=== PATIENT | female | born 2000 | race Caucasian/White ===

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

== ENCOUNTER 2025-01-31 21:06 | Emergency (ER) | payer BC ==
[2025-01-31] MEDS ORDERED: methocarbamoL 750 MG TAB ONE (22:21)
[2025-01-31] MEDS ORDERED: KETOROLAC 30 MG/ML INJ ONE (22:21)
[2025-01-31] MEDS ORDERED: ONDANSETRON 4 MG (ODT) TAB ONE (22:22)
[2025-01-31] MEDS ORDERED: TRAMADOL HCL 50 MG TAB ONE (22:22)
[2025-01-31 22:34] LABS: Absolute Basophils 0.1 K/uL (0-0.5); Absolute Eosinophils 0.1 K/uL (0-0.5); Absolute Lymphocytes (CBC) 3.2 K/uL (0.7-4.9); Absolute Monocytes 0.7 K/uL (0.1-1.3); Eosinophils % 1.7 % (0-4.4); Hematocrit 40.2 % (36.0-45.0); Hemoglobin 14.3 g/dL (12.0-15.0); MCHC 35.5 g/dL (32.0-36.0); MCV 84.6 fL (80-100); Monocytes % 8.2 % (3.3-12.3); Neutrophils % 49.1 % (41.7-73.7); Nucleated Red Blood Cells % 0.3 % (0-0); Platelets 222 thou/uL (152-406); RBC Red Blood Cell Count 4.75 M/uL (3.86-4.86); Red Cell Distribution Width 13.1 % (12.1-15.2)
[2025-01-31 22:42] LABS: PT Prothrombin Time 10.9 SECONDS (10-13.0); Protime INR 0.95
[2025-01-31 22:50] LABS: ALT/SGPT 67 U/L (13-56); AST/SGOT 34 U/L (15-37); Albumin 3.9 g/dL (3.4-5.0); Albumin/Globulin Ratio 1.1 (1.1-1.8); Alkaline Phosphatase 77 U/L (45-117); Anion Gap 9.6 mEq/L (5.0-15.0); BUN Blood Urea Nitrogen 12 mg/dL (7-18); Bicarbonate 26 mEq/L (21-32); Bilirubin Direct < 0.2 mg/dL (0-0.2); Bilirubin Indirect, Calculated 0.2 mg/dL (0.2-0.8); Bilirubin Total 0.4 mg/dL (0.2-1.0); Globulin 3.6 g/dL (2.3-3.5); Glomerular Filtration Rate 103 ml/min (=/>90); Glucose Level 97 mg/dL (74-106); NT PRO-BNP 12 pg/mL (<125); Potassium 3.6 mEq/L (3.5-5.1); Protein, Total 7.5 g/dL (6.4-8.2); Sodium Level 137 mEq/L (136-145)
[2025-02-01] MEDS ORDERED: NA CHLORIDE 0.9% 1,000 ML ONE (01:50)
[2025-02-01] MEDS ORDERED: TRAMADOL HCL 50 MG TAB ONE (05:41)
--- NOTE | 2025-02-01 05:41 | RAD REPORT ---
EXAM: 1. CT PELVIS angiography with intravenous contrast. 2. CT angiography BILATERAL LOWER EXTREMITY RUNOFF with intravenous contrast. CLINICAL DATA: 24 years Female swelling of left leg TECHNICAL DATA: Following the administration of intravenous contrast, multiple high-resolution axial images of the pe lvis were performed as well as both lower extremities followed by sagittal and coronal reconstructed images. Coronal and sagittal MIP images were also performed. The CT study is performed according to ALARA (as low as reasonably achievable) or ALARA/IMAGE GENTLY, with automatic adjustment of mA and/or kV according to patient size. Performed on: 02/01/2025 at 2:45 AM COMPARISONS: Lower extremity venous Doppler performed on 01/31/2025 FINDINGS: CTA PELVIS: Free air: There is no evidence of free air. Free fluid: There is no evidence of free fluid. Vasculature: The distal aorta is normal in caliber and contour. The proximal inferior vena cava is gr ossly unremarkable. Lymphadenopathy: No pathologic lymphadenopathy is identified. Bladder: The bladder is well distended and smooth in contour. Reproductive: The uterus is grossly within normal limits. Bones: No acute osseous abnormalities are identified. Soft tissues: No focal soft tissue abnormalities are identified. The appendix is surgically absent. CTA BILATERAL LOWER EXTREMITY RUNOFF: Aorta: The distal aorta is normal in caliber and contour. Common Iliac Arteries: The common iliac arteries are patent and are normal in caliber and contour. External Iliac Arteries: The external iliac arteries are patent and are normal in caliber and contour . Femoral Arteries: The right femoral artery is patent and is normal in caliber and contour. The left f emoral artery is patent and is normal in caliber and contour. Popliteal Arteries: The right popliteal artery is patent and is normal in caliber and contour. The le ft popliteal artery is patent and is normal in caliber and contour. Tibioperoneal Trunk Arteries: There is faint opacification of the tibioperoneal trunk arteries. The R IGHT anterior tibial artery is patent and visualized into the right foot without significant stenosis. The RIGHT peroneal artery is patent and visualized into the right ankle without significant stenosis. The RIGHT posterior tibial artery is patent and visualized into the right foot without significant stenosis. The LEFT anterior tibial artery is patent and visualized into the left foot wit hout significant stenosis. The LEFT peroneal artery is patent and visualized to the level of the left ankle The LEFT posterior tibial artery is patent and visualized into the left foot. Bones: There is no evidence of acute fracture, dislocation or other acute osseous pathology. There are no ly tic or sclerotic bone lesions. No arthritic or degenerative changes are noted. Soft tissues: There is infiltration of the superficial subcutaneous fat surrounding the left ankle and foot consist ent with soft tissue swelling and edema. Cellulitis and/or contusion with edema is not excluded. No definite focal soft tissue mass lesion or focal fluid collection is identified. There is no evidence of subcutaneous emphysema. No definite radiopaque foreign bodies are identified. There are no focal pathologic areas of enhancement. IMPRESSION: CTA PELVIS: 1. Normal CTA of the pelvis. 2. Remote appendectomy. CTA BILATERAL LOWER EXTREMITIES: 1. Normal CTA of the bilateral lower extremities. 2. Soft tissue swelling and edema surrounding the left ankle and foot. Cellulitis and/or contusion with edema is not excluded. No definite focal soft tissue mass lesion or focal fluid collection is identified. There is no evidence of subcutaneous emphysema. No definite radiopaque foreign bodies are identified. 3. No evidence of acute osseous pathology. Electronically signed by: Courtney Lozoya DO 02/01/2025 05:16 AM [facility] Due to temporary technical issues with the PACS/[employer] reporting system, reports are being candelario d by the in-house radiologist without review as a courtesy to ensure prompt reporting the interpreting radiologist is fully responsible for the content of the report. Transcribed Date/Time: 02/01/2025 5:41 AM
--- NOTE | 2025-02-01 05:41 | RAD REPORT ---
EXAM: 1. CT PELVIS angiography with intravenous contrast. 2. CT angiography BILATERAL LOWER EXTREMITY RUNOFF with intravenous contrast. CLINICAL DATA: 24 years Female swelling of left leg TECHNICAL DATA: Following the administration of intravenous contrast, multiple high-resolution axial images of the pe lvis were performed as well as both lower extremities followed by sagittal and coronal reconstructed images. Coronal and sagittal MIP images were also performed. The CT study is performed according to ALARA (as low as reasonably achievable) or ALARA/IMAGE GENTLY, with automatic adjustment of mA and/or kV according to patient size. Performed on: 02/01/2025 at 2:45 AM COMPARISONS: Lower extremity venous Doppler performed on 01/31/2025 FINDINGS: CTA PELVIS: Free air: There is no evidence of free air. Free fluid: There is no evidence of free fluid. Vasculature: The distal aorta is normal in caliber and contour. The proximal inferior vena cava is gr ossly unremarkable. Lymphadenopathy: No pathologic lymphadenopathy is identified. Bladder: The bladder is well distended and smooth in contour. Reproductive: The uterus is grossly within normal limits. Bones: No acute osseous abnormalities are identified. Soft tissues: No focal soft tissue abnormalities are identified. The appendix is surgically absent. CTA BILATERAL LOWER EXTREMITY RUNOFF: Aorta: The distal aorta is normal in caliber and contour. Common Iliac Arteries: The common iliac arteries are patent and are normal in caliber and contour. External Iliac Arteries: The external iliac arteries are patent and are normal in caliber and contour . Femoral Arteries: The right femoral artery is patent and is normal in caliber and contour. The left f emoral artery is patent and is normal in caliber and contour. Popliteal Arteries: The right popliteal artery is patent and is normal in caliber and contour. The le ft popliteal artery is patent and is normal in caliber and contour. Tibioperoneal Trunk Arteries: There is faint opacification of the tibioperoneal trunk arteries. The R IGHT anterior tibial artery is patent and visualized into the right foot without significant stenosis. The RIGHT peroneal artery is patent and visualized into the right ankle without significant stenosis. The RIGHT posterior tibial artery is patent and visualized into the right foot without significant stenosis. The LEFT anterior tibial artery is patent and visualized into the left foot wit hout significant stenosis. The LEFT peroneal artery is patent and visualized to the level of the left ankle The LEFT posterior tibial artery is patent and visualized into the left foot. Bones: There is no evidence of acute fracture, dislocation or other acute osseous pathology. There are no ly tic or sclerotic bone lesions. No arthritic or degenerative changes are noted. Soft tissues: There is infiltration of the superficial subcutaneous fat surrounding the left ankle and foot consist ent with soft tissue swelling and edema. Cellulitis and/or contusion with edema is not excluded. No definite focal soft tissue mass lesion or focal fluid collection is identified. There is no evidence of subcutaneous emphysema. No definite radiopaque foreign bodies are identified. There are no focal pathologic areas of enhancement. IMPRESSION: CTA PELVIS: 1. Normal CTA of the pelvis. 2. Remote appendectomy. CTA BILATERAL LOWER EXTREMITIES: 1. Normal CTA of the bilateral lower extremities. 2. Soft tissue swelling and edema surrounding the left ankle and foot. Cellulitis and/or contusion with edema is not excluded. No definite focal soft tissue mass lesion or focal fluid collection is identified. There is no evidence of subcutaneous emphysema. No definite radiopaque foreign bodies are identified. 3. No evidence of acute osseous pathology. Electronically signed by: Courtney Lozoya DO 02/01/2025 05:16 AM [facility] Due to temporary technical issues with the PACS/[employer] reporting system, reports are being candelario d by the in-house radiologist without review as a courtesy to ensure prompt reporting the interpreting radiologist is fully responsible for the content of the report. Transcribed Date/Time: 02/01/2025 5:40 AM
--- NOTE | 2025-02-01 05:47 | EDPHYS ---
Physician Documentation [facility] Name: Yohana Perez Age: 24 yrs Sex: Female : 2000 Arrival Date: 01/31/2025 Time: 21:06 Bed 19 Private MD: ED Physician Carlos Apodaca HPI: 01/31 21:50 This 24 yrs old Female presents to ER via Unassigned with complaints of Leg sp4 Pain - Left, Leg Swelling - left. 22:00 24-year-old female presents with acute left lower extremity swelling starting this sp4 morning at 6 AM. Patient woke up with a sudden onset of left lower extremity swelling. Patient takes control pills she also states she vapes. No prior similar episodes in the past. 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 - Infectious Disease History:: Denies. - Social history:: Smoking status: Reported history of juuling and/or vaping. - Family history:: not pertinent. ROS: 02/01 23:41 Constitutional: Negative for fever, chills, and weight loss, Positive for left leg sp4 swelling All other systems are negative, Exam: 23:41 Constitutional: This is a well developed, well nourished patient who is awake, alert, sp4 and in no acute distress. Head/Face: Normocephalic, atraumatic. Eyes: Pupils equal round and reactive to light, extra-ocular motions intact. Lids and lashes normal. Conjunctiva and sclera are not injected. Cornea within normal limits. Periorbital areas with no swelling, redness, or edema. ENT: Nares patent. No nasal discharge, no septal abnormalities noted. Tympanic membranes are normal and external auditory canals are clear. Oropharynx with no redness, swelling, or masses, exudates, or evidence of obstruction, uvula midline. Mucous membranes moist. Neck: Trachea midline, no thyromegaly or masses palpated, and no cervical lymphadenopathy. Supple, full range of motion without nuchal rigidity, or vertebral point tenderness. Chest/axilla: Normal chest wall appearance and motion. Nontender with no deformity. No lesions are appreciated. Cardiovascular: Regular rate and rhythm with a normal S1 and S2. No gallops, murmurs, or rubs. Normal PMI, no JVD. No pulse deficits. Respiratory: Lungs have equal breath sounds bilaterally, clear to auscultation and percussion. No rales, rhonchi or wheezes noted. No increased work of breathing, no retractions or nasal flaring. Abdomen/GI: Soft, with normal bowel sounds. No distension or tympany. No guarding or rebound. No evidence of tenderness throughout. Back: No spinal tenderness. No costovertebral tenderness. Skin: Warm, dry with normal turgor. Normal color with no rashes, no lesions, and no evidence of cellulitis. MS/ Extremity: Pulses equal, no cyanosis. Neurovascular intact. Full, normal range of motion. Neuro: Awake and alert, GCS 15, oriented to person, place, time, and situation. Cranial nerves II-XII grossly intact. Motor strength 5/5 in all extremities. Sensory grossly intact. Psych: Awake, alert, with orientation to person, place and time. Behavior, mood, and affect are within normal limits Vital Signs: 01/31 21:42 BP 134 / 88; Pulse 96; Resp 18; Temp 98.5; Pulse Ox 100% on R/A; Weight 79.38 kg; rg5 Height 5 ft. 3 in. ; Pain 7/10; 21:54 BP 134 / 88; Pulse 96; Resp 18; Pulse Ox 100% ; 5 22:55 BP 113 / 59; Pulse 88; Resp 18; Pulse Ox 99% ; [facility] 23:35 BP 119 / 73; Pulse 95; Resp 18; Pulse Ox 99% ; [facility] 02/01 01:13 BP 112 / 71; Pulse 89; Resp 17; Pulse Ox 98% on R/A; [facility] 04:56 BP 108 / 68; Pulse 79; Resp 18; Pulse Ox 100% on R/A; [facility] 01/31 21:42 Body Mass Index 31.00 (79.38 kg, 160.02 cm) [facility] 01/31 21:42 Pain Scale: Adult [facility] [place] Coma Score: 23:41 Eye Response: spontaneous(4). Motor Response: obeys commands(6). Verbal Response: sp4 oriented(5). Total: 15. MDM: 01/31 21:23 Medical Screening Exam initiated dr5 02/01 01:16 ED course: EXAM: Extremity Venous Uni Ltd US Left Lower Extremity Venous Duplex Doppler sp4 HISTORY: swelling left leg COMPARISON: None TECHNIQUE: Grayscale, color Doppler, duplex Doppler, spectral Doppler images and analysis with compression and augmentation of left lower extremity veins. FINDINGS: Left common femoral, greater saphenous, femoral, deep (profunda) femoral, popliteal, posterior tibial veins unremarkable without evidence of clot. IMPRESSION: No sonographic evidence of left lower extremity DVT.. 05:36 ED course: IMPRESSION: CTA PELVIS: 1. Normal CTA of the pelvis. 2. Remote appendectomy. sp4 CTA BILATERAL LOWER EXTREMITIES: 1. Normal CTA of the bilateral lower extremities. 2. Soft tissue swelling and edema surrounding the left ankle and foot. Cellulitis and/or contusion with edema is not excluded. No definite focal soft tissue mass lesion or focal fluid collection is identified. There is no evidence of subcutaneous emphysema. No definite radiopaque foreign bodies are identified. 3. No evidence of acute osseous pathology. Electronically signed by: Courtney Lozoya DO 02/01/2025 05:16 AM. 05:45 ED course: IMPRESSION: CTA PELVIS: 1. Normal CTA of the pelvis. 2. Remote appendectomy. sp4 CTA BILATERAL LOWER EXTREMITIES: 1. Normal CTA of the bilateral lower extremities. 2. Soft tissue swelling and edema surrounding the left ankle and foot. Cellulitis and/or contusion with edema is not excluded. No definite focal soft tissue mass lesion or focal fluid collection is identified. There is no evidence of subcutaneous emphysema. No definite radiopaque foreign bodies are identified. 3. No evidence of acute osseous pathology. Electronically signed by: Courtney Lozoya DO 02/01/2025 05:16 AM. 23:43 Differential diagnosis: dislocation, open fracture, closed fracture, contusion, sp4 abrasion, tendonitis. Data reviewed: vital signs, nurses notes, lab test result(s), radiologic studies, CT scan, ultrasound. Consideration of Admission/Observation Escalation of care including admission/observation considered. 01/31 22:00 Order name: Basic Metabolic Panel; Complete Time: 01:15 sp 01/31 22:00 Order name: CBC with Diff; Complete Time: :15 [facility] 01/31 22:00 Order name: LFT's; Complete Time: 01:15 sp4 01/31 22:00 Order name: NT PRO-BNP; Complete Time: 01:15 sp4 01/31 22:00 Order name: PT-INR; Complete Time: 01:15 sp4 01/31 22:00 Order name: Test, Serum; Complete Time: 01:15 sp4 01/31 21:59 Order name: Extremity Venous Uni Ltd US sp4 02/01 01:32 Order name: CT Pelvis Angio sp4 02/01 01:58 Order name: Lower Ext Angio EDMS 01/31 22:00 Order name: IV Saline Lock; Complete Time: 22:34 sp4 01/31 22:00 Order name: Labs collected and sent; Complete Time: 22:34 sp4 Administered Medications: 01/31 22:33 Drug: traMADol PO 100 mg PO once Route: PO; rg5 02/01 01:51 Follow up: Response: No adverse reaction; Pain is decreased rg5 01/31 22:34 Drug: Ketorolac IVP 30 mg IVP once Route: IVP; Site: right antecubital; rg5 02/01 01:51 Follow up: Response: No adverse reaction; Pain is decreased rg5 01/31 22:34 Drug: Ondansetron PO 4 mg PO once Route: PO; rg5 02/01 01:51 Follow up: Response: No adverse reaction; Pain is decreased rg5 01/31 22:34 Drug: Methocarbamol PO 750 mg PO once Route: PO; rg5 02/01 01:51 Follow up: Response: No adverse reaction; Pain is decreased rg5 01:58 Drug: NS 0.9% IV 1000 ml IV at 1000 ml once; to be given as a bolus over 60 minutes rg5 Route: IV; Rate: 1000 ml; Site: right antecubital; 04:11 Follow up: IV Status: Completed infusion; IV Intake: 1000ml rg5 05:46 Drug: traMADol PO 100 mg PO once Route: PO; rg5 06:09 Follow up: Response: No adverse reaction; Pain is decreased rg5 05:47 Drug: Ondansetron PO 4 mg PO once Route: PO; rg5 06:09 Follow up: Response: No adverse reaction rg5 05:47 Drug: Trimethoprim-Sulfamethoxazole PO (160 mg-800 mg (DS) 1 tablet PO once Route: PO; rg5 06:09 Follow up: Response: No adverse reaction rg5 05:47 Drug: Cephalexin PO 500 mg PO once Route: PO; rg5 06:09 Follow up: Response: No adverse reaction rg5 Disposition Summary: 02/01/25 05:47 Discharge Ordered Notes: Location: Home sp4 Problem: new sp4 Symptoms: have improved sp4 Condition: Stable sp4 Diagnosis - Cellulitis of left lower limb sp4 - Acute left lower extremity swelling, acute cellulitis left lower extremity sp4 Followup: sp4 - With: Private Physician - When: 7 - 10 days - Reason: Recheck today's complaints Discharge Instructions: - Discharge Summary Sheet sp4 - Cellulitis, Adult, [id number] sp4 Forms: - Work release form sp4 - Patient Portal Instructions sp4 Prescriptions: - ketorolac 10 mg Oral tablet - take 1 tablet ORAL route every 8 hours for 5 days PRN pain; 30 tablet; Refills: sp4 0, Product Selection Permitted - tramadol 100 mg Oral tablet - take 1 tablet ORAL route every 8 hours PRN pain; 30 tablet; Refills: 0, Product sp4 Selection Permitted - Cephalexin 500 mg Oral Capsule - take 1 capsule ORAL route every 6 hours for 10 days; 40 capsule; Refills: 0, sp4 Product Selection Permitted - Bactrim DS 800-160 mg Oral Tablet - take 1 tablet ORAL route every 12 hours for 10 days; 20 tablet; Refills: 0, sp4 Product Selection Permitted - ondansetron 8 mg Oral Tablet,disintegrating - take 1 tablet ORAL route every 8 hours PRN nausea; 30 tablet; Refills: 0, sp4 Product Selection Permitted Signatures: Dispatcher [employer] Carlos Haas MD MD sp4 Tod Tobias RN RN rg5 Rafael Engel, COMBATANT SWIMMER-C COMBATANT SWIMMER-Cdr5 Corrections: (The following items were deleted from the chart) 01/31 22:00 22:00 Extremity Venous Uni Ltd+US.RAD.BRZ ordered. EDMS EDMS 22:00 22:00 TEST, SERUM+SC.LAB.BRZ ordered. EDMS EDMS
--- NOTE | 2025-02-01 05:47 | ER ---
Nurse's Notes [facility] Name: Yohana Perez Age: 24 yrs Sex: Female : 2000 Arrival Date: 01/31/2025 Time: 21:06 Bed 19 Private MD: Diagnosis: Cellulitis of left lower limb;Acute left lower extremity swelling, acute cellulitis left lower extremity Presentation: 01/31 21:42 Chief complaint: Patient states: left leg is swelling since 6am this morning \T\ pain rg5 starts from my left side of the hip radiating down to my foot. 21:42 Coronavirus screen: Client denies travel out of the [place] in the last 14 days. Ebola rg5 Screen: Patient negative for fever greater than or equal to 101.5 degrees Fahrenheit, and additional compatible Ebola Virus Disease symptoms Patient denies exposure to infectious person. Patient denies travel to an Ebola-affected area in the 21 days before illness onset. Initial Sepsis Screen: Does the patient meet any 2 criteria? No. Patient's initial sepsis screen is negative. Does the patient have a suspected source of infection? No. Patient's initial sepsis screen is negative. Risk Assessment: Do you want to hurt yourself or someone else? Patient reports no desire to harm self or others. Onset of symptoms was January 31, 2025. 21:42 Method Of Arrival: Wheelchair rg5 21:42 Acuity: MARIYA 4 rg5 Triage Assessment: 21:42 General: Appears in no apparent distress. comfortable, Behavior is calm, cooperative, rg5 appropriate for age. Pain: Complains of pain in left foot and left leg Quality of pain is described as aching, Pain began 4 hours ago. EENT: No deficits noted. Neuro: Level of Consciousness is awake, alert, obeys commands, Oriented to person, place, time, situation. Cardiovascular: Patient's skin is warm and dry. Respiratory: Airway is patent Trachea midline Respiratory effort is even, unlabored, Respiratory pattern is regular, symmetrical. GI: Abdomen is round non-distended. : No signs and/or symptoms were reported regarding the genitourinary system. Derm: Skin is intact, Skin is dry, Skin is normal, Skin temperature is warm. Musculoskeletal: Circulation, motion, and sensation intact. Range of motion: intact in all extremities. 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 - Infectious Disease History:: Denies. - Social history:: Smoking status: Reported history of juuling and/or vaping. - Family history:: not pertinent. Screenin:42 [facility] ED Fall Risk Assessment (Adult) History of falling in the last 3 months, rg5 including since admission No falls in past 3 months (0 pts) Confusion or Disorientation No (0 pts) Intoxicated or Sedated No (0 pts) Impaired Gait No (0 pts) Mobility Assist Device Used No (0 pt) Altered Elimination No (0 pt) Score/Fall Risk Level 0 - 2 = Low Risk Oriented to surroundings, Maintained a safe environment, Provided non-skid footwear. 21:42 Abuse screen: Denies threats or abuse. Nutritional screening: No deficits noted. rg5 Tuberculosis screening: No symptoms or risk factors identified. Assessment: 21:45 General: Appears uncomfortable, Behavior is calm, cooperative, appropriate for age. rg5 21:45 Pain: Complains of pain in left foot and left leg Quality of pain is described as rg5 aching. Neuro: Level of Consciousness is awake, alert, obeys commands, Oriented to person, place, time. Cardiovascular: Denies chest pain, Patient's skin is warm and dry. Respiratory: Airway is patent Trachea midline Respiratory effort is even, unlabored, Respiratory pattern is regular, symmetrical. GI: Abdomen is round non-distended. : No signs and/or symptoms were reported regarding the genitourinary system. EENT: No deficits noted. Derm: Skin is intact, Skin is dry, Skin is normal. Musculoskeletal: Circulation, motion, and sensation intact. Range of motion: intact in all extremities. 22:40 Reassessment: No changes from previously documented assessment. Patient and/or family rg5 updated on plan of care and expected duration. Pain level reassessed. Patient is alert, oriented x 3, equal unlabored respirations, skin warm/dry/pink. 23:45 Reassessment: No changes from previously documented assessment. Patient and/or family rg5 updated on plan of care and expected duration. Pain level reassessed. Patient is alert, oriented x 3, equal unlabored respirations, skin warm/dry/pink. 02/01 00:40 Reassessment: No changes from previously documented assessment. Patient and/or family rg5 updated on plan of care and expected duration. Pain level reassessed. Patient is alert, oriented x 3, equal unlabored respirations, skin warm/dry/pink. 01:42 Reassessment: No changes from previously documented assessment. Patient and/or family rg5 updated on plan of care and expected duration. Pain level reassessed. Patient is alert, oriented x 3, equal unlabored respirations, skin warm/dry/pink. 02:41 Reassessment: No changes from previously documented assessment. Patient and/or family rg5 updated on plan of care and expected duration. Pain level reassessed. Patient is alert, oriented x 3, equal unlabored respirations, skin warm/dry/pink. 03:35 Reassessment: No changes from previously documented assessment. Patient and/or family rg5 updated on plan of care and expected duration. Pain level reassessed. Patient is alert, oriented x 3, equal unlabored respirations, skin warm/dry/pink. 04:50 Reassessment: No changes from previously documented assessment. Patient and/or family rg5 updated on plan of care and expected duration. Pain level reassessed. Patient is alert, oriented x 3, equal unlabored respirations, skin warm/dry/pink. Vital Signs: 01/31 21:42 BP 134 / 88; Pulse 96; Resp 18; Temp 98.5; Pulse Ox 100% on R/A; Weight 79.38 kg; 5 Height 5 ft. 3 in. ; Pain 7/10; 21:54 BP 134 / 88; Pulse 96; Resp 18; Pulse Ox 100% ; 5 22:55 BP 113 / 59; Pulse 88; Resp 18; Pulse Ox 99% ; [facility] 23:35 BP 119 / 73; Pulse 95; Resp 18; Pulse Ox 99% ; [facility] 02/01 01:13 BP 112 / 71; Pulse 89; Resp 17; Pulse Ox 98% on R/A; [facility] 04:56 BP 108 / 68; Pulse 79; Resp 18; Pulse Ox 100% on R/A; [facility] 01/31 21:42 Body Mass Index 31.00 (79.38 kg, 160.02 cm) [facility] 01/31 21:42 Pain Scale: Adult rg5 Lorenzo Coma Score: 23:41 Eye Response: spontaneous(4). Motor Response: obeys commands(6). Verbal Response: sp4 oriented(5). Total: 15. ED Course: 01/31 21:12 Patient arrived in ED. im 21:23 [facility] 21:23 Carlos Apodaca MD is Attending Physician. dr5 21:42 Arm band placed on. rg5 21:42 Patient has correct armband on for positive identification. Door closed. Noise rg5 minimized. 21:42 No provider procedures requiring assistance completed. rg5 21:45 Inserted saline lock: 22 gauge in right antecubital area, using aseptic technique. rg5 Blood collected. Flushed with 10 mL NS. 21:46 Tod Tobias, RN is Primary Nurse. rg5 21:51 Triage completed. rg5 23:11 Extremity Venous Uni Ltd US In Process Unspecified. EDMS 02/01 02:34 CT Pelvis Angio In Process Unspecified. EDMS 02:34 Lower Ext Angio In Process Unspecified. EDMS 06:10 Provided Education on: post er care done. rg5 06:10 IV discontinued, bleeding controlled, No redness/swelling at site. Pressure dressing rg5 applied. Administered Medications: 01/31 22:33 Drug: traMADol PO 100 mg PO once Route: PO; rg5 02/01 01:51 Follow up: Response: No adverse reaction; Pain is decreased rg5 01/31 22:34 Drug: Ketorolac IVP 30 mg IVP once Route: IVP; Site: right antecubital; rg5 02/01 01:51 Follow up: Response: No adverse reaction; Pain is decreased rg5 01/31 22:34 Drug: Ondansetron PO 4 mg PO once Route: PO; rg5 02/01 01:51 Follow up: Response: No adverse reaction; Pain is decreased rg5 01/31 22:34 Drug: Methocarbamol PO 750 mg PO once Route: PO; rg5 02/01 01:51 Follow up: Response: No adverse reaction; Pain is decreased rg5 01:58 Drug: NS 0.9% IV 1000 ml IV at 1000 ml once; to be given as a bolus over 60 minutes rg5 Route: IV; Rate: 1000 ml; Site: right antecubital; 04:11 Follow up: IV Status: Completed infusion; IV Intake: 1000ml rg5 05:46 Drug: traMADol PO 100 mg PO once Route: PO; rg5 06:09 Follow up: Response: No adverse reaction; Pain is decreased rg5 05:47 Drug: Ondansetron PO 4 mg PO once Route: PO; rg5 06:09 Follow up: Response: No adverse reaction rg5 05:47 Drug: Trimethoprim-Sulfamethoxazole PO (160 mg-800 mg (DS) 1 tablet PO once Route: PO; rg5 06:09 Follow up: Response: No adverse reaction rg5 05:47 Drug: Cephalexin PO 500 mg PO once Route: PO; rg5 06:09 Follow up: Response: No adverse reaction rg5 Medication: 01/31 21:45 VIS not applicable for this client. rg5 Intake: 02/01 04:11 IV: 1000ml; Total: 1000ml. rg5 Outcome: 05:47 Discharge ordered by . sp4 06:10 Discharged to home via wheelchair, rg5 06:10 Condition: stable 06:10 Discharge instructions given to patient, Instructed on discharge instructions, Demonstrated understanding of instructions, follow-up care, Prescriptions given X 4, 06:11 Patient left the ED. rg5 Signatures: Dispatcher [employer] Carlos Haas MD MD sp4 Susy Germain Rommel RN RN rg5 Rafael Engel, BOWLING PIN SETTERS INSTALLER-C BOWLING PIN SETTERS INSTALLER-Cdr5
[2025-02-01] MEDS ORDERED: SMZ./TMP. 800/160 MG TABLET ONE (05:52)
[2025-02-01] MEDS ORDERED: ONDANSETRON 4 MG (ODT) TAB ONE (05:52)
[2025-02-01] MEDS ORDERED: CEPHALEXIN 250 MG CAP ONE (05:52)
[2025-02-01 06:24] VITALS: TEMP 98.5
[2025-02-01 06:39] VITALS: BP 108/68; O2SAT 100
--- NOTE | 2025-02-01 07:41 | RAD REPORT ---
EXAMINATION: US LEFT LOWER EXTREMITY VENOUS DOPPLER CLINICAL INDICATION: swelling left leg TECHNIQUE: Complete bilateral duplex sonography of the LEFT lower extremity veins was performed. The examination included compression for vein patency, color Doppler imaging and flow augmentation in response to distal compression of the distal external iliac, common femoral, femoral, popliteal, tibi al, and great and small saphenous veins. COMPARISON: No prior exam. FINDINGS: Duplex sonography testing of the veins of the LEFT lower extremity was performed. Color flow imaging shows all veins to be compressible with [id number] color filling. Pulsatile and phasic flow is present within all lower extremity deep and superficial veins examined. IMPRESSION: There is no deep vein or superficial vein thrombosis.
== END 2025-02-01 06:11 | disposition home or self-care (01) ==
LOC: ER 21:06
DX: L03.116 Cellulitis of left lower limb (principal)
CPT/HCPCS: 85025; 80048; 36415; 84703; 85610; 80076; 83880; 73706; 72191; 93971; Q9967; Q0162 ×2; J7030

== ENCOUNTER 2025-02-07 17:45 | Inpatient (IN) | payer BC ==
[2025-02-07] MEDS ORDERED: ONDANSETRON 4 MG/2 ML VIAL ONE (19:31)
[2025-02-07] MEDS ORDERED: MORPHINE 4 MG/ML SYR ONE (19:32)
[2025-02-07] MEDS ORDERED: NA CHLORIDE 0.9% 1,000 ML ONE (19:32)
[2025-02-07 19:42] LABS: Absolute Basophils 0.1 K/uL (0-0.5); Absolute Eosinophils 0.1 K/uL (0-0.5); Absolute Lymphocytes (CBC) 2.1 K/uL (0.7-4.9); Absolute Monocytes 0.7 K/uL (0.1-1.3); Absolute Neutrophil 5.3 K/uL (1.8-8.0); Eosinophils % 1.3 % (0-4.4); Hematocrit 40.1 % (36.0-45.0); Hemoglobin 14.1 g/dL (12.0-15.0); Lymphocytes % 25.5 % (15.3-44.8); MCH 29.4 pg (27.0-35.0); MCHC 35.1 g/dL (32.0-36.0); MCV 83.7 fL (80-100); MPV 8.7 fL (7.6-11.3); Monocytes % 8.1 % (3.3-12.3); Neutrophils % 64.1 % (41.7-73.7); Nucleated RBC Absolute Count 0.1 (0-0); Nucleated Red Blood Cells % 0.7 % (0-0); Platelets 229 thou/uL (152-406); Red Cell Distribution Width 12.8 % (12.1-15.2)
[2025-02-07 19:50] LABS: PT Prothrombin Time 11.4 SECONDS (10-13.0); PTT, Activated Partial Thromb 30.9 SECONDS (27.2-37.4)
[2025-02-07 19:58] LABS: Albumin/Globulin Ratio 1.1 (1.1-1.8); Bilirubin Total 0.5 mg/dL (0.2-1.0); Globulin 3.6 g/dL (2.3-3.5); Protein, Total 7.6 g/dL (6.4-8.2)
--- NOTE | 2025-02-07 20:22 | EDPHYS ---
Physician Documentation [facility] Name: Yohana Perez Age: 24 yrs Sex: Female : 2000 Arrival Date: 02/07/2025 Time: 17:45 Bed 23 Private MD: ED Physician Sumanth Marshall HPI: 02/07 18:10 This 24 yrs old Female presents to ER via Ambulatory with complaints of Leg Swelling. cp Historical: - Allergies: 17:52 No Known Allergies; hb - PSHx: 17:52 Appendectomy; hb - Immunization history:: Adult Immunizations up to date. - Infectious Disease History:: Denies. - Social history:: Smoking status: Patient denies any tobacco usage or history of. ROS: 18:15 Constitutional: Negative for body aches, chills, fever, poor PO intake, cp 18:15 Eyes: Negative for injury, pain, redness, and discharge, cp 18:15 ENT: Negative for drainage from ear(s), ear pain, sore throat, difficulty swallowing, difficulty handling secretions, 18:15 Cardiovascular: Positive for edema of left lower leg, Negative for chest pain, palpitations, 18:15 Respiratory: Negative for cough, shortness of breath, wheezing, 18:15 Abdomen/GI: Negative for abdominal pain, nausea, vomiting, and diarrhea, 18:15 Back: Negative for injury or acute deformity, decreased range of motion, 18:15 MS/extremity: Positive for pain, swelling, tenderness, of the left leg, Negative for paresthesias, 18:15 Neuro: Negative for altered mental status, headache, syncope, 18:15 All other systems are negative, Exam: 18:20 Constitutional: The patient appears in no acute distress, alert, awake, cp non-diaphoretic, non-toxic, well developed, well nourished, uncomfortable, 18:20 Head/Face: Normocephalic, atraumatic. cp 18:20 Eyes: Periorbital structures: appear normal, Conjunctiva: normal, no exudate, no injection, Sclera: no appreciated abnormality, Lids and lashes: appear normal, bilaterally, 18:20 ENT: External ear(s): are unremarkable, Nose: is normal, Mouth: Lips: moist, Oral mucosa: moist, Posterior pharynx: Airway: no evidence of obstruction, patent, 18:20 Neck: ROM/movement: is normal, is supple, without pain, no range of motions limitations, 18:20 Chest/axilla: Inspection: normal, 18:20 Cardiovascular: Rate: normal, Rhythm: regular, Edema: ankle edema, that is moderate, left ankle and left lower leg, JVD: is not appreciated, 18:20 Respiratory: the patient does not display signs of respiratory distress, Respirations: normal, no use of accessory muscles, no retractions, labored breathing, is not present, Breath sounds: are clear throughout, no decreased breath sounds, no stridor, no wheezing, 18:20 Abdomen/GI: Inspection: abdomen appears normal, Palpation: abdomen is soft and non-tender, in all quadrants, 18:20 Back: pain, is absent, ROM is normal, 18:20 Musculoskeletal/extremity: Extremities: noted in the left leg: pain, tenderness, There is no evidence of decreased ROM, ecchymosis, erythema, ROM: limited passive range of motion due to pain, in the left hip and left knee and left ankle, Pulses: noted to be 2+ in the left dorsalis pedis artery, the left foot and left leg Sensation intact. Joints: no signs of septic joint of left hip and left knee and left ankle, 19:53 ECG was reviewed by the Attending Physician. Vital Signs: 17:51 BP 143 / 89; Pulse 99; Resp 16; Temp 97.9; Pulse Ox 100% on R/A; Pain 8/10; hb 20:58 BP 112 / 57; Pulse 90; Resp 16; Pulse Ox 100% on R/A; jb4 17:51 Pain Scale: Adult hb MDM: 20:07 Medical Screening Exam initiated aaliyah 20:20 Data reviewed: vital signs, nurses notes, old medical records, ED notes, labs, radiology studies from previous visit for similar complaints lab test result(s), EKG. 20:20 I considered the following discharge prescriptions or medication management in the emergency department Medications were administered in the Emergency Department. See MAR. Independent interpretation of the following test(s) in the Emergency Department EKG: See my EKG interpretation above. 02/07 18:07 Order name: Blood Culture Adult (2) 02/07 18:07 Order name: CBC with Diff; Complete Time: 19:45 04/20 19:45 Interpretation: Normal except. cp 02/07 18:07 Order name: CMP; Complete Time: 20:17 cp 02/07 20:17 Interpretation: Normal except: GFR 83; GLOB 3.6. cp 02/07 18:07 Order name: Lactate w/ 2H reflex if indic.; Complete Time: 20:17 cp 02/07 18:07 Order name: Protime (+inr); Complete Time: 20:17 cp 02/07 18:07 Order name: Ptt, Activated; Complete Time: 20:17 cp 02/07 18:07 Order name: Urinalysis w/ reflexes cp 02/07 22:40 Order name: CBC with Automated Diff EDMS 02/07 22:40 Order name: CBC with Automated Diff EDMS 02/07 22:40 Order name: Comprehensive Metabolic Panel EDMS 02/07 22:40 Order name: Comprehensive Metabolic Panel EDMS 02/08 09:10 Order name: C-Reactive Protein EDMS 02/07 20:45 Order name: US Extremity Venous Unilateral Ltd; Complete Time: 22:43 cp 02/07 20:45 Order name: Lower Extremity Artery Uni Ltd ; Complete Time: 22:43 cp 02/07 22:43 Interpretation: Report reviewed. cp 02/07 22:40 Order name: CONS Physician Consult EDMS 02/07 18:07 Order name: Cardiac monitoring; Complete Time: 19:30 cp 02/07 18:07 Order name: EKG - Nurse/Tech; Complete Time: 19:50 cp 02/07 18:07 Order name: IV Saline Lock - Large Bore; Complete Time: 19:30 cp 02/07 18:07 Order name: Labs collected and sent; Complete Time: 19:30 cp 02/07 18:07 Order name: O2 Per Protocol; Complete Time: 18:27 cp 02/07 18:07 Order name: O2 Sat Monitoring; Complete Time: 18:27 cp 02/07 18:07 Order name: Vital Signs; Complete Time: 18:27 cp EC:53 Rate is 81 beats/min. Rhythm is regular. ND interval is normal. QRS interval is normal. cp QT interval is normal. T waves are Inverted in lead aVR. Interpreted by me. Reviewed by me. Administered Medications: 19:42 Drug: NS 0.9% IV 1000 ml IV at 1000 ml once; to be given as a bolus over 60 minutes jb4 Route: IV; Rate: 1000 ml; Site: right antecubital; 21:07 Follow up: Response: No adverse reaction; IV Status: Completed infusion; IV Intake: jb4 1000ml 19:42 Drug: morphine IVP or IV 4 mg IVP once over 4 mins Route: IVP; Infused Over: 4 mins; jb4 Site: right antecubital; 21:08 Follow up: Response: No adverse reaction; Marked relief of symptoms jb4 19:42 Drug: Ondansetron IVP 4 mg IVP once; over 2 minutes Route: IVP; Site: right antecubital;jb4 21:08 Follow up: Response: No adverse reaction; Marked relief of symptoms jb4 20:58 Drug: Piperacillin-Tazobactam IVPB 3.375 grams IVPB once over 60 mins; (mix in NS 100 jb4 mL) Route: IVPB; Infused Over: 60 mins; Site: right antecubital; 21:58 Follow up: Response: No adverse reaction; IV Status: Completed infusion; IV Intake: jb4 100ml 21:58 Follow up: IV Status: Completed infusion; IV Intake: 100ml vc1 22:30 Drug: vancoMYCIN IVPB 1 grams IVPB once over 2 hrs Route: IVPB; Infused Over: 2 hrs; jb4 Site: right antecubital; 02/08 00:30 Follow up: IV Status: Completed infusion vc1 Disposition: 02/09 14:47 Co-signature as Attending Physician, Sumanth Marshall MD I agree with the assessment and aaliyah plan of care. Disposition Summary: 02/07/25 20:21 Hospitalization Ordered Notes: Hospitalization Status: Inpatient Admission cp Provider: Kai Scott cp Condition: Stable cp Problem: new cp Symptoms: have improved cp Bed/Room Type: Standard cp Location: Telemetry/MedSurg (Inpatient)(02/08/25 13:46) em1 Room Assignment: 409(02/08/25 13:46) em1 Diagnosis - Cellulitis of left lower limb cp Forms: - Medication Reconciliation Form cp - SBAR form cp - Leadership Thank You Letter cp Signatures: Dispatcher [employer] Sumanth Escamilla MD MD cha Martinez, Eric em1 Sumanth Mckeon PA PA cp Nicole Dias RN RN Joseph Kay RN RN jb4 Madison, Letty vk Calcote, Ernestina RN vc1 Corrections: (The following items were deleted from the chart) 02/07 18:08 18:08 BLOOD CULTURE*+BA.LAB.BRZ ordered. EDMS EDMS 18:08 18:08 CBC+H.LAB.BRZ ordered. EDMS EDMS 18:08 18:08 COMPREHENSIVE METABOLIC PANEL+C.LAB.BRZ ordered. EDMS EDMS 18:08 18:08 LACTATE+C.LAB.BRZ ordered. EDMS EDMS 18:08 18:08 PROTIME (+INR)+COAG.LAB.BRZ ordered. EDMS EDMS 18:08 18:08 PTT, ACTIVATED+COAG.LAB.BRZ ordered. EDMS EDMS 18:08 18:08 Urinalysis+U.LAB.BRZ ordered. EDMS EDMS 20:21 18:07 Accucheck ordered. cp jb4 20:46 20:46 Lower Extremity Artery Uni Ltd+US.RAD.BRZ ordered. EDMS EDMS 21:12 20:21 Telemetry/MedSurg (Inpatient) cp vk 21:12 20:21 cp vk 02/08 13:46 02/07 21:12 [facility] ER HOLD vk em1 02/08 13:46 02/07 21:12 ERHOLD- vk em1
--- NOTE | 2025-02-07 20:22 | ER ---
Nurse's Notes [facility] Name: Yohana Perez Age: 24 yrs Sex: Female : 2000 Arrival Date: 02/07/2025 Time: 17:45 Bed 23 Private MD: Diagnosis: Cellulitis of left lower limb Presentation: 02/07 17:51 Chief complaint: Seen in ED for left leg pain and swelling, feels like it is getting hb worse. Coronavirus screen: At this time, the client does not indicate any symptoms associated with coronavirus-19. Ebola Screen: No symptoms or risks identified at this time. Initial Sepsis Screen: Does the patient meet any 2 criteria? No. Patient's initial sepsis screen is negative. Does the patient have a suspected source of infection? No. Patient's initial sepsis screen is negative. Risk Assessment: Do you want to hurt yourself or someone else? Patient reports no desire to harm self or others. Onset of symptoms was January 31, 2025. 17:51 Method Of Arrival: Ambulatory hb 17:51 Acuity: MARIYA 3 hb Historical: - Allergies: 17:52 No Known Allergies; hb - PSHx: 17:52 Appendectomy; hb - Immunization history:: Adult Immunizations up to date. - Infectious Disease History:: Denies. - Social history:: Smoking status: Patient denies any tobacco usage or history of. Assessment: 20:58 Reassessment: Patient appears in no apparent distress at this time. Patient and/or jb4 family updated on plan of care and expected duration. Pain level reassessed. Patient is alert, oriented x 3, equal unlabored respirations, skin warm/dry/pink. Vital Signs: 17:51 BP 143 / 89; Pulse 99; Resp 16; Temp 97.9; Pulse Ox 100% on R/A; Pain 8/10; hb 20:58 BP 112 / 57; Pulse 90; Resp 16; Pulse Ox 100% on R/A; jb4 17:51 Pain Scale: Adult hb ED Course: 17:48 Patient arrived in ED. al6 17:50 Sumanth Mckeon PA is PHCP. cp 17:50 Sumanth Marshall MD is Attending Physician. cp 17:52 Triage completed. hb 17:54 Arm band placed on. hb 20:21 Kai Scott MD is Hospitalizing Provider. cp 21:22 Joseph Toure, RN is Primary Nurse. jb4 22:24 US Extremity Venous Unilateral Ltd In Process Unspecified. EDMS 22:24 Lower Extremity Artery Uni Ltd US In Process Unspecified. EDMS 02/08 07:07 Primary Nurse role handed off by Joseph Toure, RN bp 07:07 Oren Brown, RN is Primary Nurse. bp Administered Medications: 02/07 19:42 Drug: NS 0.9% IV 1000 ml IV at 1000 ml once; to be given as a bolus over 60 minutes jb4 Route: IV; Rate: 1000 ml; Site: right antecubital; 21:07 Follow up: Response: No adverse reaction; IV Status: Completed infusion; IV Intake: jb4 1000ml 19:42 Drug: morphine IVP or IV 4 mg IVP once over 4 mins Route: IVP; Infused Over: 4 mins; jb4 Site: right antecubital; 21:08 Follow up: Response: No adverse reaction; Marked relief of symptoms jb4 19:42 Drug: Ondansetron IVP 4 mg IVP once; over 2 minutes Route: IVP; Site: right antecubital;jb4 21:08 Follow up: Response: No adverse reaction; Marked relief of symptoms jb4 20:58 Drug: Piperacillin-Tazobactam IVPB 3.375 grams IVPB once over 60 mins; (mix in NS 100 jb4 mL) Route: IVPB; Infused Over: 60 mins; Site: right antecubital; 21:58 Follow up: Response: No adverse reaction; IV Status: Completed infusion; IV Intake: jb4 100ml 21:58 Follow up: IV Status: Completed infusion; IV Intake: 100ml vc1 22:30 Drug: vancoMYCIN IVPB 1 grams IVPB once over 2 hrs Route: IVPB; Infused Over: 2 hrs; jb4 Site: right antecubital; 02/08 00:30 Follow up: IV Status: Completed infusion vc1 Medication: 02/07 20:58 VIS not applicable for this client. jb4 Intake: 21:07 IV: 1000ml; Total: 1000ml. jb4 21:58 IV: 100ml; Total: 1100ml. jb4 21:58 IV: 100ml; Total: 1200ml. vc1 Outcome: 20:21 Decision to Hospitalize by Provider. cp 02/08 15:09 Patient left the ED. bp Signatures: Dispatcher [employer] EDMS Sumanth Mckeon PA PA cp Baxter, Heather, RN RN Joseph Kay RN RN jb4 Oren Brown RN RN bp Calcote, Vanessa, RN RN vc1 Christiane Carroll
[2025-02-07] MEDS ORDERED: VANCOMYCIN 1 GM/VIAL ONE (20:25)
[2025-02-07] MEDS ORDERED: NA CHLORIDE 0.9% 250 ML ONE (20:25)
[2025-02-07] MEDS ORDERED: PIPERACIL/TAZO 3.375 GM VIAL IV ONE (20:25)
[2025-02-07] MEDS ORDERED: NA CHLORIDE 0.9% 100 ML ONE (20:25)
--- NOTE | 2025-02-07 22:34 | P.HP ---
Certification for Inpatient Patient admitted to: Inpatient With expected LOS: >2 Midnights Practitioner: I am a practitioner with admitting privileges, knowledge of patient current condition, hospital course, and medical plan of care. Services: Services provided to patient in accordance with Admission requirements found in Title 42 Section 412.3 of the Code of Federal Regulations Patient History Date of Service: 02/07/25 Reason for admission: Left leg Pain History of Present Illness: 24 yrs old Female with no significant past medical history brought to ER with left lower extremity pain and swelling which has been going on for the last 8 days. Denies any chest pain or shortness of breath. Patient denies any trauma. No fever or chills. Patient started having pain and swelling on the left lower extremity. She was assessed in the ER previously with CTA which was negative patient continues to have pain and swelling in the left lower extremity and was admitted for further management Allergies No Known Allergies Allergy (Verified 11/12/18 19:56) Home Medications: NK [No Home Meds] 11/12/18 - Past Medical/Surgical History Diabetic: No Past Medical History: Reviewed- Non-Contributory -: none Past Surgical History: Reviewed- Non-Contributory - Family History Family History: Reviewed- Non-Contributory - Social History Smoking Status: Never smoker Alcohol use: Yes CD- Drugs: No Caffeine use: Yes Review of Systems 10-point ROS is otherwise unremarkable Other: constitutional: Reports: generalized weakness. Skin: Denies: rash. Allergy/Immun: Denies: rhinorrhea, sneezing. Eyes: Denies: visual loss/blurred. ENT: Denies: earache, nasal congestion. Respiratory: Denies: non productive cough. Cardiovascular: Denies: chest pain, palpitations. GI: Denies: diarrhea, nausea. : Denies: dysuria. Musculoskeletal: Reports: arthritis. Denies: extremity pain. Heme: Denies: bleeding. Endocrine: Denies: polydipsia. Neuro: Reports: dizziness, gait problem, lightheaded, spinning sensation. Psych: Reports: anxiety. All systems rev & neg: except as noted Physical Examination - Vital Signs Temperature: 97.4 F Blood Pressure: 118/68 Pulse: 76 Respirations: 18 Pulse Ox (%): 94 - Physical Exam General: Alert, In no apparent distress, Oriented x3 HEENT: Atraumatic, Normocephalic Neck: Supple Respiratory: Clear to auscultation bilaterally, Normal air movement Cardiovascular: Normal pulses, Regular rate/rhythm, Edema Capillary refill: <2 Seconds Gastrointestinal: Soft and benign, W/out hepatosplenomegaly Musculoskeletal: No clubbing, Swelling Integumentary: No rashes Neurological: Normal gait, Normal speech, Normal strength at 5/5 x4 extr Lymphatics: No axilla or inguinal lymphadenopathy - Studies Laboratory Data (last 24 hrs) 02/07/25 02/07/25 02/07/25 19:25 19:25 19:25 WBC 8.20 Hgb 14.1 Hct 40.1 Plt Count 229 PT 11.4 INR 1.00 APTT 30.9 Sodium 136 Potassium 4.0 BUN 12 Creatinine 0.98 Glucose 93 Total Bilirubin 0.5 AST 28 ALT 73 H Alkaline Phosphatase 67 Assessment and Plan - Plan Left lower extremity cellulitis/swelling Pain control Will get a Doppler arterial and also Doppler of the venous system to rule out DVT Awaiting further recommendations Will get a surgical consult GI/DVT prophylaxis Discharge Plan: Home Plan to discharge in: 48 Hours - Advance Directives Does patient have a Living Will: No Does patient have a Durable POA for Healthcare: No - Code Status/Comfort Care Code Status: Full Code Time Spent Managing Pts Care (In Minutes): 48
[2025-02-07] MEDS ORDERED: ONDANSETRON 4 MG/2 ML VIAL IV PRN (22:35)
[2025-02-07] MEDS ORDERED: ACETAMINOPHEN 325 MG TABLET PO PRN (22:35)
--- NOTE | 2025-02-07 22:36 | RAD REPORT ---
EXAM:Extremity Venous Uni Ltd HISTORY: Left leg pain TECHNIQUE: Sonographic evaluation left lower extremity performed.Grayscale, color and spectral analys is performed on all vessels COMPARISON: None. FINDINGS: Left common femoral, superficial femoral, greater saphenous, popliteal and posterior tibial veins are compressible and demonstrate augmentation. Doppler demonstrates good flow. IMPRESSION: No evidence of deep venous thrombosis involving the left lower extremity.
--- NOTE | 2025-02-07 22:38 | RAD REPORT ---
EXAM:Lower Extremity Artery Uni Ltd HISTORY: Left leg pain TECHNIQUE: Sonographic evaluation left lower extremity arteries performed.Grayscale, color and spectr al analysis performed on all vessels COMPARISON: None. FINDINGS: Left common femoral arterial waveform triphasic Left superficial femoral arterial waveform triphasic Left popliteal arterial waveform triphasic Left posterior tibial waveform is biphasic Left dorsalis pedis arterial waveform biphasic. No high-grade stenosis/occlusion IMPRESSION: Mild distal disease involving arteries of the left lower extremity
[2025-02-07 23:01] VITALS: BMI 30.9
[2025-02-07] MEDS ORDERED: KETOROLAC 10 MG TAB PO PRN (23:59)
[2025-02-08 07:56] LABS: Absolute Basophils 0.1 K/uL (0-0.5); Absolute Eosinophils 0.1 K/uL (0-0.5); Absolute Lymphocytes (CBC) 2.4 K/uL (0.7-4.9); Absolute Monocytes 0.7 K/uL (0.1-1.3); Absolute Neutrophil 4.6 K/uL (1.8-8.0); Basophils % 0.8 % (0-1.3); Eosinophils % 1.7 % (0-4.4); Hematocrit 38.2 % (36.0-45.0); Hemoglobin 13.2 g/dL (12.0-15.0); Lymphocytes % 30.3 % (15.3-44.8); MCH 29.1 pg (27.0-35.0); MCHC 34.5 g/dL (32.0-36.0); MCV 84.3 fL (80-100); Monocytes % 8.6 % (3.3-12.3); Neutrophils % 58.6 % (41.7-73.7); Platelets 214 thou/uL (152-406); RBC Red Blood Cell Count 4.53 M/uL (3.86-4.86); Red Cell Distribution Width 12.5 % (12.1-15.2)
[2025-02-08] MEDS: ENOXAPARIN 40 MG/0.4 ML SQ SCH (08:29)
[2025-02-08] MEDS: VANCOMYCIN 1 GM in NA CHLORIDE 0.9% 250 ML IVPB SCH (08:54)
[2025-02-08] MEDS: PIPER TAZO 3.375 GM in NA CHLORIDE 0.9% 100 ML IV SCH (09:00)
[2025-02-08 09:06] LABS: Albumin 3.3 g/dL (3.4-5.0); Albumin/Globulin Ratio 1.1 (1.1-1.8); Bilirubin Total 0.7 mg/dL (0.2-1.0); C-Reactive Protein 5.46 mg/L (<3.00); Globulin 3.1 g/dL (2.3-3.5); Protein, Total 6.4 g/dL (6.4-8.2)
[2025-02-08] MEDS ORDERED: VANCOMYCIN 1 GM/VIAL ONE (09:17)
[2025-02-08] MEDS ORDERED: NA CHLORIDE 0.9% 250 ML ONE (09:18)
[2025-02-08] MEDS ORDERED: PIPERACIL/TAZO 3.375 GM VIAL IV ONE (09:18)
[2025-02-08] MEDS ORDERED: NA CHLORIDE 0.9% 100 ML ONE ×2 (09:18→09:20)
[2025-02-08] MEDS: VANCOMYCIN 1.5 GM in NA CHLORIDE 0.9% 500 ML IVPB SCH ×2 (10:00→22:28)
--- NOTE | 2025-02-08 10:49 | P.PN ---
Subjective Date of Service: 02/08/25 Chief Complaint: Left leg Pain Subjective: No chest pain or shortness of breath. No nausea or vomiting. No abdominal pain. No obvious bleeding. Looks comfortable in the bed. Complaining of left leg pain and swelling. Objective: General appearance: Alert and comfortable CVS: Normal S1 and S2 Lungs: Clear to auscultation bilaterally Abdomen: Soft, bowel sounds present, no tenderness Extremities: No right lower extremity edema. Left lower extremity swollen and tender, minimal erythema. Physical Examination - Vital Signs Temperature: 98 F Blood Pressure: 104/57 Pulse: 65 Respirations: 18 Pulse Ox (%): 100 - Studies Laboratory Data (last 24 hrs) 02/07/25 02/07/25 02/07/25 19:25 19:25 19:25 WBC 8.20 Hgb 14.1 Hct 40.1 Plt Count 229 PT 11.4 INR 1.00 APTT 30.9 Sodium 136 Potassium 4.0 BUN 12 Creatinine 0.98 Glucose 93 Total Bilirubin 0.5 AST 28 ALT 73 H Alkaline Phosphatase 67 Assessment And Plan - Plan 1. Left lower extremity cellulitis/swelling - Pain control - Doppler arterial and also Doppler of the venous system neg except mild distal disease on arterial Doppler - started on IV antibiotics, monitor clinical status closely 2. Obesity with a BMI of 31: Follow-up with PCP, consider weight loss. Plan discussed with patient and nursing staff, monitor clinical status closely.
[2025-02-08] MEDS: MORPHINE 2 MG/ML SYR IV PRN (15:50)
[2025-02-08 23:04] LABS: Specific Gravity 1.017 (1.005-1.030); Urine Bacteria <20 /HPF (<20); Urine Bilirubin NEGATIVE (Negative); Urine Blood Negative (Negative); Urine Clarity Extremely Turbid (Clear); Urine Color Light-Yellow (Yellow); Urine Culture Reflex Order NOT NEEDED; Urine Glucose NEGATIVE (Negative); Urine Ketones NEGATIVE (Negative); Urine Microscopic Reflex YN ORDER UMIC; Urine Mucus Slight /HPF (None Seen); Urine Nitrite NEGATIVE (Negative); Urine Protein NEGATIVE (Negative); Urine RBC <5 /HPF (None Seen); Urine Urobilinogen Normal (Normal); Urine WBC <5 /HPF (<5); Urine pH 6.5 (5.0-7.0)
--- NOTE | 2025-02-09 00:03 | CON ---
Date of Consultation: 02/08/2025 Reason For Service: Left lower extremity swelling, unknown etiology. History Of Present Illness: This is the case of a 24-year-old patient who comes to us with the left lower extremity swelling. She stated it started in ankle, then leg, knee, thigh, up to the groin are a. She does not recall any trauma, any injuries, any pulling, any pain, any cuts. It just happened. She denies any previous scratches. Denies any night sweats, any lymphadenopathy. The other leg on the right side looks normal. She is saying that obviously over the weekend she was doing some chore s and some cleaning at home, but nothing out of the usual. No lifting differently. Allergies: NONE. Medications: None. Medical History: None. Family History: Noncontributory. Review of Systems: No nausea. No vomiting. No fever. No shortness of breath. No chest pain. No night sweats. No ly mphadenopathy. No sore throat. No recent trauma or any insect bites. No abdominal pain. No vagina l discharge. Review of systems, 10 points, otherwise unremarkable. Physical Examination: Vital Signs: Reviewed. General: The patient is awake, alert, in no distress. HEENT: Pupils are equal and reactive. Anicteric. Neck: Supple. Chest: Clear. Heart: S1, S2. Abdomen: Soft and depressible. No guarding or rebound. Genitourinary: Groin area with no tenderness. Extremities: Over the left leg, the patient has mild swelling. No Homans signs. No pitting edema. It just comes from the foot all the way up to the knee. She states that it was up to the groin when she came in, but right now this may be in the distal calf and foot area. No compartment pressure. The compartments are soft. No Homans signs. No calf tenderness. Peripheral pulses are present. No cyanosis. No open cuts on the legs. Cranial nerves 2 through 12 grossly within normal limits. Blood Work: WBC count of 8.2, hemoglobin 14.1. Potassium 4.0, creatinine is 0.98. Extremity Dopple r, interpreted by Dr. Pacheco, shows no evidence of deep vein thrombosis. Left common femoral, super ficial femoral, greater saphenous, posterior popliteal, and posterior tibial veins are compressible a nd demonstrate documentation. I do not see anything mentioned about the lymph nodes in that area. N ot sure if they were evaluated. Doppler studies showed mild distal disease involving arteries of the lower extremities, but otherwise normal. Assessment: 24-year-old patient, leg swelling of unknown origin. She stated that sometimes she feel s tense in the area of the groin. It is unable to see if she has lymphadenopathies there in the past or not due to the body habitus. Now we do not see any clots in the veins. She does not stand for a long time. She is a young lady with no history of lymphedema. No reasons for it. No night sweats. No fevers that may indicate leukocytosis now. In my standpoint, if this comes from the groin area, I would like to go and see the lymph node in that region whether it was draining, any possible cause of this lymphedema on the left side to happen. I do not see any redness today. She states that gordy nly not red, it is just swollen, so the drainage system of lymphatic is the veins may be compromised, unable to know, maybe at the level of the groin, may be even higher, so while she is here I am going to try to get a CAT scan of the abdomen and pelvis to just look at the drainage system. We will loo k in also for lymphadenopathy. AFTAB/REID Voice ID: [id number] Report ID: [id number]
[2025-02-09 05:43] LABS: Absolute Basophils 0.1 K/uL (0-0.5); Absolute Eosinophils 0.1 K/uL (0-0.5); Absolute Monocytes 0.8 K/uL (0.1-1.3); Absolute Neutrophil 5.7 K/uL (1.8-8.0); Basophils % 0.6 % (0-1.3); Eosinophils % 1.5 % (0-4.4); Hematocrit 39.1 % (36.0-45.0); Hemoglobin 13.5 g/dL (12.0-15.0); Lymphocytes % 30.7 % (15.3-44.8); MCH 29.4 pg (27.0-35.0); MCHC 34.6 g/dL (32.0-36.0); MCV 85.1 fL (80-100); MPV 9.5 fL (7.6-11.3); Monocytes % 8.5 % (3.3-12.3); Neutrophils % 58.7 % (41.7-73.7); Platelets 204 thou/uL (152-406); RBC Red Blood Cell Count 4.59 M/uL (3.86-4.86); Red Cell Distribution Width 12.6 % (12.1-15.2)
[2025-02-09 05:59] LABS: Phosphorus 4.3 mg/dL (2.5-4.9)
--- NOTE | 2025-02-09 10:10 | RAD REPORT ---
EXAMINATION: CT Abdomen Pelvis W Contrast CLINICAL INDICATION: Female, 24 years old. left lymphedema unknown possible left lymphadenopathy TECHNIQUE: CT abdomen and pelvis was performed, after the administration of IV contrast, as per [facility] protocol. Axial, sagittal and coronal reconstructions were obtained. One or more of the following dose reduction techniques were used: Automated exposure control, adjustment of the mA and k V according to patient size, and iterative reconstruction. Unless otherwise specified, incidental findings do not require dedicated imaging follow-up. COMPARISON: 02/01/2025 CT pelvis and lower extremity angiogram. FINDINGS: LOWER CHEST: The visualized lung bases are clear. LIVER: Normal in size and contour. No focal lesion. BILIARY SYSTEM: No suspicious abnormalities. SPLEEN: Normal size. No focal lesion. PANCREAS: No mass, ductal dilation, or joana-pancreatic fluid. ADRENALS: Normal; no mass. KIDNEYS: Normal size and contour. No hydronephrosis. URINARY BLADDER: Unremarkable. GASTROINTESTINAL TRACT: No evidence of free air, significant intra-abdominal free fluid, bowel obstru ction or abscess. APPENDIX: Appendix surgically absent. LYMPH NODES: No lymphadenopathy. MUSCULOSKELETAL: No acute or suspicious osseous abnormality. ADDITIONAL FINDINGS: Uterus is retroflexed. Trace fluid in the cul-de-sac, possibly physiologic. Michela inally enhancing right adnexal 1.6 cm structure, may represent a recently ruptured follicle.. IMPRESSION: No acute or concerning abnormalities seen in the abdomen or pelvis. No suspicious masses or adenopath y. Incidental findings as above.
[2025-02-09] MEDS ORDERED: HYDROCODONE/APAP 5/325 MG TAB PO PRN (15:14)
--- NOTE | 2025-02-09 15:14 | P.PN ---
Subjective Date of Service: 02/09/25 Chief Complaint: Left leg Pain Subjective: No chest pain or shortness of breath. No nausea or vomiting. No abdominal pain. No obvious bleeding. Looks comfortable in the bed. left leg pain and swelling improving. Objective: General appearance: Alert and comfortable CVS: Normal S1 and S2 Lungs: Clear to auscultation bilaterally Abdomen: Soft, bowel sounds present, no tenderness Extremities: No right lower extremity edema. Left lower extremity swelling better today, no erythema or tenderness Physical Examination - Vital Signs Temperature: 98.0 F Blood Pressure: 119/69 Pulse: 78 Respirations: 16 Pulse Ox (%): 99 Assessment And Plan - Plan 1. Left lower extremity cellulitis/swelling - Pain control - Doppler arterial and also Doppler of the venous system neg except mild distal disease on arterial Doppler - started on IV antibiotics, clinically improvig, change to roal ABX, monitor clinical status closely -CT abd pelvis neg -WBC normal, CRP increased. 2. Obesity with a BMI of 31: Follow-up with PCP, consider weight loss. Plan discussed with patient and nursing staff, monitor clinical status closely. Prob home with oral ABX tomorrow
[2025-02-09] MEDS: AMOX/K CLAV 875 MG TAB PO SCH (20:18)
[2025-02-09] MEDS: DOXYCYCLINE 100 MG CAP PO SCH (20:18)
[2025-02-09 23:15] VITALS: O2SAT 99
[2025-02-10 06:34] LABS: ALT/SGPT 78 U/L (13-56); AST/SGOT 33 U/L (15-37); Albumin 3.8 g/dL (3.4-5.0); Alkaline Phosphatase 61 U/L (45-117); Anion Gap 9.8 mEq/L (5.0-15.0); BUN Blood Urea Nitrogen 9 mg/dL (7-18); Bicarbonate 23 mEq/L (21-32); Bilirubin Direct < 0.2 mg/dL (0-0.2); Bilirubin Indirect, Calculated 0.4 mg/dL (0.2-0.8); Bilirubin Total 0.6 mg/dL (0.2-1.0); Globulin 3.7 g/dL (2.3-3.5); Glomerular Filtration Rate 118 ml/min (=/>90); Glucose Level 93 mg/dL (74-106); Potassium 3.8 mEq/L (3.5-5.1); Protein, Total 7.5 g/dL (6.4-8.2); Sodium Level 138 mEq/L (136-145)
[2025-02-10 08:37] LABS: Absolute Basophils 0.1 K/uL (0-0.5); Absolute Eosinophils 0.2 K/uL (0-0.5); Absolute Lymphocytes (CBC) 2.5 K/uL (0.7-4.9); Absolute Monocytes 0.8 K/uL (0.1-1.3); Absolute Neutrophil 5.4 K/uL (1.8-8.0); Basophils % 0.7 % (0-1.3); Hematocrit 40.2 % (36.0-45.0); Hemoglobin 14.2 g/dL (12.0-15.0); Lymphocytes % 28.4 % (15.3-44.8); MCH 29.9 pg (27.0-35.0); MCHC 35.2 g/dL (32.0-36.0); MPV 9.7 fL (7.6-11.3); Monocytes % 8.7 % (3.3-12.3); Neutrophils % 60.2 % (41.7-73.7); Nucleated Red Blood Cells % 0.1 % (0-0); Platelets 214 thou/uL (152-406); RBC Red Blood Cell Count 4.74 M/uL (3.86-4.86); Red Cell Distribution Width 12.7 % (12.1-15.2)
--- NOTE | 2025-02-10 12:46 | EKG ---
Test Date: 2025-02-07 Test Time: 19:48:35 Captain Room Service: GUICHO MEASUREMENT RESULTS: Intervals: Rate: 81 NM: 154 QRSD: 72 QT: 380 QTc: 441 [place]: P: 62 NM: 154 QRS: 66 T: 56 INTERPRETIVE STATEMENTS: Normal sinus rhythm with sinus arrhythmia Normal ECG No previous ECG available for comparison Electronically Signed On 02-10-25 12:40:26 CDT by Dillon Mancilla
--- NOTE | 2025-02-10 13:07 | RAD REPORT ---
EXAMINATION: MRI LEFT ANKLE CLINICAL INDICATION: Female, 24 years old. [facility] left ankle pain and swelling TECHNIQUE: Multiplanar, multi sequence imaging was performed of the left ankle without contrast. Unl ess otherwise specified, incidental findings do not require dedicated imaging follow-up. COMPARISON: CTA lower extremities 02/01/2025. FINDINGS: TENDONS Peroneal: Peroneal longus tendon intact. Peroneal brevis tendon split or partial tear at the level of the lateral malleolus, with no significant intrinsic signal abnormality, probably chronic. Posteromedial: Posterior tibial tendon intact. Flexor hallucis longus tendon intact. Flexor digitorum longus tendon intact. Anterior: Tibialis anterior tendon intact. Extensor hallucis longus tendon intact. Extensor digitorum longus tendon intact. Achilles: Intact. Plantar Fascia: Intact. LIGAMENTS Lateral: Anterior talofibular ligament intact. Calcaneofibular ligament intact. Posterior talofibular ligament intact. Anterior and posterior tibiofibular ligaments intact. Medial: Deltoid ligament intact. Spring ligament intact. BONES: No marrow signal abnormality. No fracture or dislocation. No coalition. CARTILAGE Ankle Joint: No joint effusion. Normal ankle mortise. No osteochondral defect. Subtalar Joints/Sinus Tarsi: Normal subtalar joints. No subtalar joint effusion. Normal sinus tarsi. Soft tissues: Moderate edematous changes along the subcutaneous dorsum of the foot, as well as medial and lateral aspects of the ankle. Mild edematous changes extending along the deep muscles of the foot. No abnormal fluid collections are appreciated. Small benign-appearing bone cyst at the level of the neck of the calcaneus. IMPRESSION: Soft tissue edematous changes as above. No abnormal fluid collections within limits of noncontrast ev aluation. No acute ligamentous or osseous abnormalities. Chronic appearing split or partial tear of the peroneu s brevis tendon.
--- NOTE | 2025-02-10 14:23 | P.DS ---
Admission Date: 02/07/25 Discharge Date: 02/10/25 Disposition: DC HOME/HOME HEALTH CARE Discharge Condition: GOOD Reason for Admission: Left leg Pain Hospital Course: Discharge diagnosis: 1. Left lower extremity pain/swelling: ?cellulitis - Improving - Doppler arterial and also Doppler of the venous system neg except mild distal disease on arterial Doppler - started on IV antibiotics, clinically improving, changed to oral ABX on 02/09, DC home to finish the course -CT abd pelvis neg -WBC normal, CRP increased. -MRI ankle showed soft tissue trellis swelling and chronic tear but no acute findings 2. Obesity with a BMI of 31: Follow-up with PCP, consider weight loss. Plan discussed with patient and nursing staff, discussed with family at bedside, DC home today, follow-up with PCP, rheumatology or vascular clinic if symptoms does not improve Hospital course: 24-year-old patient presented with left leg swelling, there was some concern of cellulitis, started on IV antibiotics, she had a CT of the abdominal pelvis which was negative, arterial and venous Doppler of left leg is negative as well, she was clinically slowly getting better with IV antibiotics but the leg swelling is still present, pain is improving as well but still some pain around the left ankle, she had an MRI scan of the left ankle today, which showed skin and soft tissue swelling but no acute findings in the joint, no effusion, there is a chronic tear but no acute tears, I discussed these findings with the patient, they are comfortable to go home, advised to follow-up with the vascular clinic or the rheumatology clinic as soon as possible if the symptoms does not improve in the next few days, I will give her antibiotics for few more days to finish the course of 1 week of antibiotics. Subjective: No chest pain or shortness of breath. No nausea or vomiting. No abdominal pain. No obvious bleeding. Looks comfortable in the bed. left leg pain and swelling improving. Objective: General appearance: Alert and comfortable CVS: Normal S1 and S2 Lungs: Clear to auscultation bilaterally Abdomen: Soft, bowel sounds present, no tenderness Extremities: No right lower extremity edema. Left lower extremity swelling better today but still present, no erythema or tenderness in the calf or left knee, left ankle has some discomfort but no erythema Vital Signs/Physical Exam: Temp Pulse Resp BP Pulse Ox 98.1 F 90 17 117/65 100 02/10/25 12:00 02/10/25 12:00 02/10/25 12:00 02/10/25 12:00 02/10/25 12:00 Laboratory Data at Discharge: WBC 8.90 thou/uL (4.3-10.9) 02/10/25 08:20 Hgb 14.2 g/dL (12.0-15.0) 02/10/25 08:20 Hct 40.2 % (36.0-45.0) 02/10/25 08:20 Plt Count 214 thou/uL (152-406) 02/10/25 08:20 PT 11.4 SECONDS (10-13.0) 02/07/25 19: INR 1.00 02/07/25: APTT 30.9 SECONDS (27.2-37.4) 02/07/25 19:25 Sodium 138 mEq/L (136-145) 02/10/25 05:52 Potassium 3.8 mEq/L (3.5-5.1) 02/10/25 05:52 BUN 9 mg/dL (7-18) 02/10/25 05:52 Creatinine 0.73 mg/dL (0.55-1.02) 02/10/25 05:52 Glucose 93 mg/dL (74-106) 02/10/25 05:52 Phosphorus 4.3 mg/dL (2.5-4.9) 02/09/25 05:10 Magnesium 2.0 mg/dL (1.6-2.4) 02/09/25 05:10 Total Bilirubin 0.6 mg/dL (0.2-1.0) 02/10/25 05:52 AST 33 U/L (15-37) 02/10/25 05:52 ALT 78 U/L (13-56) H 02/10/25 05:52 Alkaline Phosphatase 61 U/L (45-117) 02/10/25 05:52 Imagings Data: ## MRI left ankle: Soft tissue edematous changes as above. No abnormal fluid collections within limits of noncontrast evaluation. No acute ligamentous or osseous abnormalities. Chronic appearing split or partial tear of the peroneus brevis tendon. ##CT abdomen and pelvis COMPARISON: 02/01/2025 CT pelvis and lower extremity angiogram. FINDINGS: LOWER CHEST: The visualized lung bases are clear. LIVER: Normal in size and contour. No focal lesion. BILIARY SYSTEM: No suspicious abnormalities. SPLEEN: Normal size. No focal lesion. PANCREAS: No mass, ductal dilation, or joana-pancreatic fluid. ADRENALS: Normal; no mass. KIDNEYS: Normal size and contour. No hydronephrosis. URINARY BLADDER: Unremarkable. GASTROINTESTINAL TRACT: No evidence of free air, significant intra-abdominal free fluid, bowel obstruction or abscess. APPENDIX: Appendix surgically absent. LYMPH NODES: No lymphadenopathy. MUSCULOSKELETAL: No acute or suspicious osseous abnormality. RADIOLOGY SERVICES REPORT (Continued) Name: ANUP KNIGHT CC: Rayo Scott DO; Justin Siegel MD; NONE ANUP KNIGHT / Report: [id number] Radiology Services Report Page 2 of 2 ADDITIONAL FINDINGS: Uterus is retroflexed. Trace fluid in the cul-de-sac, possibly physiologic. Marginally enhancing right adnexal 1.6 cm structure, may represent a recently ruptured follicle.. IMPRESSION: No acute or concerning abnormalities seen in the abdomen or pelvis. No suspicious masses or adenopathy. Incidental findings as above. Home Medications: Norethindrone-E.estradiol-Iron [Loestrin Fe 1.5-30 Tablet] 1 tab PO DAILY 02/08/25 Amox/Clavulanate [Augmentin 875-125 Tab*] 875 mg PO BID #10 tab 02/10/25 Doxycycline Hyclate 100 mg PO BID #10 tab 02/10/25 New Medications: Amox/Clavulanate [Augmentin 875-125 Tab*] 875 mg PO BID #10 tab Doxycycline Hyclate 100 mg PO BID #10 tab Diet: Regular Activity: Ad tracey Followup: NONE,NONE [Primary Care Provider] - 2-3 Days (f/u with PCP in 3-5 days with CBC and CMP, if no improvement in left leg symptoms, consider referral to rheumatology or vascular clinic) Time spent managing pt's care (in minutes): 32
[2025-02-10 16:22] VITALS: BP 125/76; TEMP 98
[2025-02-11 19:34] LABS: Anti-Nuclear Antibody Screen Positive (Negative)
[2025-02-11 20:01] LABS: Anti-Nuclear Antibody Pattern REPORT
== END 2025-02-10 16:25 | disposition home or self-care (01) | DRG 603 ==
LOC: ER 17:45 → ERHOLD 22:35 → 4TH 02-08 13:52
PROVIDERS: ADMIT Family Medicine; ATTEND Hospitalist
DX: L03.116 Cellulitis of left lower limb (principal); F41.9 Anxiety disorder, unspecified; E66.9 Obesity, unspecified; Z68.31 Body mass index [BMI] 31.0-31.9, adult; Z90.49 Acquired absence of other specified parts of digestive tract; Z79.899 Other long term (current) drug therapy
CPT/HCPCS: 36415; 74177; 80048; 80053; 80076; 80202; 81001; 83605; 83735; 84100; 85025; 85610; 85730; 86038; 86140; 87040; 93005; 93926; 93971; 96361; 96365; 96366; 96367; 96375; 99283; J1650; J2270; J2405; J2543; J3370; J7030; J7040; J7050; Q9967